=== PATIENT | male | born 1985 | race Caucasian/White ===

== ENCOUNTER 2019-08-18 13:44 | Emergency (ER) | payer SELFPAY ==
--- NOTE | 2019-08-18 16:19 | CR ---
Right foot: 3 views of the right foot were obtained. Comparison: No prior foot exam. Slight bunion deformity is noted. No fracture, dislocation or other bony abnormality is seen. Impression: 1. Slight bunion deformity. 2. Right foot study is otherwise unremarkable. Diagnostic code #2 Study was dictated in [place] Standard Time
--- NOTE | 2019-08-18 16:28 | EDM.PDOC ---
ED HPI GENERAL MEDICAL PROBLEM - General Chief Complaint: Lower Extremity Injury/Pain Stated Complaint: HURT RIGHT FOOT Time Seen by Provider: 08/18/19 16:28 Source of Information: Reports: Patient History Limitations: Reports: No Limitations - History of Present Illness INITIAL COMMENTS - FREE TEXT/NARRATIVE: HISTORY AND PHYSICAL: History of present illness: Patient is a 34-year-old male presents the ED with concern of right fifth toe injury. Patient states that he dropped 180 pound piece of equipment on his toe this morning. He states that he has been walking on it without any difficulty and has mild discomfort. He denies proximal ankle or other injury no other complaints at this time. Review of systems: As per history of present illness and below otherwise all systems reviewed and negative. Past medical history: As per history of present illness and as reviewed below otherwise noncontributory. Surgical history: As per history of present illness and as reviewed below otherwise noncontributory. Social history: No reported history of drug or alcohol abuse. Family history: As per history of present illness and as reviewed below otherwise noncontributory. Physical exam: General: Patient sitting comfortably in no acute distress and nontoxic appearing HEENT: Atraumatic, normocephalic, pupils reactive, negative for conjunctival pallor or scleral icterus, mucous membranes moist, throat clear, neck supple, nontender, trachea midline. No meningeal signs. Lungs: Clear to auscultation, breath sounds equal bilaterally, chest nontender. Heart: S1S2, regular, negative for clicks, rubs, or overt murmur. Abdomen: Soft, nondistended, nontender. Negative for masses or hepatosplenomegaly. Negative for costovertebral tenderness. No rigidity, rebound , guarding. Pelvis: Stable nontender. Genitourinary: Deferred. Rectal: Deferred. Extremities: Ecchymosis to the right fifth toe without any swelling or deformity. Skin is intact. Negative for cords or calf pain. Neurovascular unremarkable. Neuro: Awake, alert, oriented. Cranial nerves II through XII unremarkable. Cerebellum unremarkable. Motor and sensory unremarkable throughout. Exam nonfocal. Notes: Diagnostics: X-ray right foot Therapeutics: None Prescriptions: None Impression: Right toe injury Plan: 1. Ice, elevate, and motrin or tylenol as needed 2. Follow up with fisher pound net or trap, please call the number provided to schedule an appointment 3. Return to ED as needed as discussed Definitive disposition and diagnosis as appropriate pending reevaluation and review of above. right foot Pain Score (Numeric/FACES): 8 - Related Data Allergies Allergy/AdvReac Type Severity Reaction Status Date / Time No Known Allergies Allergy Verified 08/18/19 15:17 Home Meds: Home Meds . [No Known Home Meds] 08/18/19 [History] Past Medical History Other Musculoskeletal History: left wrist surgery. right knee surgery. right femur surgery. jaw surgery - Past Surgical History GI Surgical History: Reports: Appendectomy Social & Family History - Family History Family Medical History: Noncontributory - Tobacco Use Smoking Status *Q: Current Every Day Smoker Years of Tobacco use: 10 Packs/Tins Daily: 1 - Recreational Drug Use Recreational Drug Use: No Review of Systems - Review of Systems Review Of Systems: Comprehensive ROS is negative, except as noted in HPI. ED EXAM, GENERAL - Physical Exam Exam: See Below (see dictation) Course - Vital Signs Last Recorded V/S: Last Vital Signs Temp 96.4 F L 08/18/19 15:17 Pulse 78 08/18/19 15:17 Resp 16 08/18/19 15:17 BP 141/81 H 08/18/19 15:17 Pulse Ox 98 08/18/19 15:17 Departure - Departure Time of Disposition: 16:31 Disposition: Home, Self-Care 01 Condition: Good Clinical Impression: Injury of right toe - Discharge Information Instructions: Contusion, Musculoskeletal Pain Referrals: PCP,None [Primary Care Provider] - Forms: ED Department Discharge Additional Instructions: The following information is given to patients seen in the emergency department who are being discharged to home. This information is to outline your options for follow-up care. We provide all patients seen in our emergency department with a follow-up referral. The need for follow-up, as well as the timing and circumstances, are variable depending upon the specifics of your emergency department visit. If you don't have a primary care physician on staff, we will provide you with a referral. We always advise you to contact your personal physician following an emergency department visit to inform them of the circumstance of the visit and for follow-up with them and/or the need for any referrals to a consulting specialist. The emergency department will also refer you to a specialist when appropriate. This referral assures that you have the opportunity for follow-up care with a specialist. All of these measure are taken in an effort to provide you with optimal care, which includes your follow-up. Under all circumstances we always encourage you to contact your private physician who remains a resource for coordinating your care. When calling for follow-up care, please make the office aware that this follow-up is from your recent emergency room visit. If for any reason you are refused follow-up, please contact the [facility] Emergency Department at and asked to speak to the emergency department charge nurse. [facility] [address] [place] [address] [facility] [address] [place] [id number] [facility] [address] [place] [id number] 1. Ice, elevate, and motrin or tylenol as needed 2. Follow up with fisher pound net or trap, please call the number provided to schedule an appointment 3. Return to ED as needed as discussed Sepsis Event Note - Evaluation Sepsis Screening Result: No Definite Risk - Focused Exam Vital Signs: Vital Signs Temp Pulse Resp BP Pulse Ox 08/18/19 15:17 96.4 F L 78 16 141/81 H 98 Date Exam was Performed: 08/18/19 Time Exam was Performed: 17:04
== END 2019-08-18 16:37 | disposition home or self-care (01) ==
LOC: MW.ED 13:44
DX: S90.121A Contusion of right lesser toe(s) without damage to nail, initial encounter (principal); F17.210 Nicotine dependence, cigarettes, uncomplicated; W20.8XXA Other cause of strike by thrown, projected or falling object, initial encounter
CPT/HCPCS: 73630-26-RT; 73630-RT; 99282; 99283-25

== ENCOUNTER 2019-09-21 17:12 | Emergency (ER) | payer OTHER ==
--- NOTE | 2019-09-21 17:43 | EDM.PDOC ---
ED HPI GENERAL MEDICAL PROBLEM - General Chief Complaint: ENT Problem Stated Complaint: RIGHT EAR PROBLEM Time Seen by Provider: 09/21/19 17:18 Source of Information: Reports: Patient History Limitations: Reports: No Limitations - History of Present Illness INITIAL COMMENTS - FREE TEXT/NARRATIVE: HISTORY AND PHYSICAL: History of present illness: And is a 34-year-old male who presents to the emergency room with complaints of right ear pain. He states prior to arrival he was working on a tire when it blew up resulting in a loud noise. He put his finger in his ear and had noticed some blood on the tip of his finger. Since the incident he has had muffled hearing on the right side. There was no loss of consciousness or actual physical blow to his head. He states he is unsure if he was having any ear pain prior to that but is now noticeable since the incident. Patient denies any fever, chills, headache, change in vision, syncope or near syncope. Denies any chest pain, back pain, shortness of breath or cough. Denies any GI or symptoms. Patient has been eating and drinking appropriately. Review of systems: As per history of present illness and below otherwise all systems reviewed and negative. Past medical history: As per history of present illness and as reviewed below otherwise noncontributory. Surgical history: As per history of present illness and as reviewed below otherwise noncontributory. Social history: See social history for further information Family history: As per history of present illness and as reviewed below otherwise noncontributory. Physical exam: General: Well developed and well nourished 34-year-old male. Alert and oriented. Nontoxic-appearing and in no acute distress. HEENT: Nontender, normocephalic, pupils equal and reactive bilaterally, negative for conjunctival pallor or scleral icterus, mucous membranes moist, TMs normal bilaterally, the right ear canal is red and tenderness with pulling back on the ear, throat clear, neck supple, nontender, trachea midline. No drooling or trismus noted. No meningeal signs. No hot potato voice noted. Lungs: Clear to auscultation, breath sounds equal bilaterally, chest nontender. Heart: S1S2, regular rate and rhythm without overt murmur Abdomen: Soft, nondistended, nontender. Skin: Intact, warm, dry. No lesions or rashes noted. Extremities: Atraumatic, moves all extremities per self without difficulty or deficits. Neurovascular unremarkable. Neuro: Awake, alert, oriented. Cranial nerves II through XII unremarkable. Cerebellum unremarkable. Motor and sensory unremarkable throughout. Exam nonfocal. Notes: We discussed signs and symptoms that would prompt him to return to the emergency room. I would like to have him continue to monitor the hearing in the right ear and follow-up if this does not improve or in fact worsens. Medication and supportive care measures were reviewed and discussed. Voices understanding and is agreeable to plan of care. Denies any further questions or concerns at this time. Diagnostics: None Therapeutics: Cipro Gtts Prescription: None Impression: Otitis externa Plan: 1. Use the eardrops 4 drops in the right ear twice daily over the next 5 days. Avoid placing anything in the ear cannal. 2. Alternate Tylenol and/or ibuprofen as needed. 3. Follow up with Return to the ED as needed and as discussed. Definitive disposition and diagnosis as appropriate pending reevaluation and review of above. - Related Data Allergies Allergy/AdvReac Type Severity Reaction Status Date / Time No Known Allergies Allergy Verified 09/21/19 17:36 Home Meds: Home Meds Ciprofloxacin/Hydrocortisone [Cipro HC Otic Susp] 4 drop OT BID #1 bottle [Rx] Past Medical History Other Musculoskeletal History: left wrist surgery. right knee surgery. right femur surgery. jaw surgery - Past Surgical History GI Surgical History: Reports: Appendectomy Social & Family History - Family History Family Medical History: Noncontributory ED ROS ENT - Review of Systems Review Of Systems: Comprehensive ROS is negative, except as noted in HPI. ED EXAM, ENT - Physical Exam Exam: See Below (See dictation) Departure - Departure Time of Disposition: 17:42 Disposition: Home, Self-Care 01 Clinical Impression: Otitis externa Qualifiers: Otitis externa type: unspecified type Chronicity: acute Laterality: right Qualified Code(s): H60.501 - Unspecified acute noninfective otitis externa, right ear - Discharge Information Prescriptions: Ciprofloxacin/Hydrocortisone [Cipro HC Otic Susp] 4 drop OT BID #1 bottle Referrals: PCP,None [Primary Care Provider] - Additional Instructions: The following information is given to patients seen in the emergency department who are being discharged to home. This information is to outline your options for follow-up care. We provide all patients seen in our emergency department with a follow-up referral. The need for follow-up, as well as the timing and circumstances, are variable depending upon the specifics of your emergency department visit. If you don't have a primary care physician on staff, we will provide you with a referral. We always advise you to contact your personal physician following an emergency department visit to inform them of the circumstance of the visit and for follow-up with them and/or the need for any referrals to a consulting specialist. The emergency department will also refer you to a specialist when appropriate. This referral assures that you have the opportunity for follow-up care with a specialist. All of these measure are taken in an effort to provide you with optimal care, which includes your follow-up. Under all circumstances we always encourage you to contact your private physician who remains a resource for coordinating your care. When calling for follow-up care, please make the office aware that this follow-up is from your recent emergency room visit. If for any reason you are refused follow-up, please contact the [facility] Emergency Department at and asked to speak to the emergency department charge nurse. [facility] [address] [place] [address] [address] 1. Use the eardrops 4 drops in the right ear twice daily over the next 5 days. Avoid placing anything in the ear cannal. 2. Alternate Tylenol and/or ibuprofen as needed. 3. Follow up with Return to the ED as needed and as discussed.
[2019-09-21] MEDS ORDERED: Ciprofloxacin/Hydrocortisone Otic Susp 10 ML Bottle EARLF SCH ×2 (18:00)
== END 2019-09-21 17:50 | disposition home or self-care (01) ==
LOC: MW.ED 17:12
DX: H60.501 Unspecified acute noninfective otitis externa, right ear (principal)
CPT/HCPCS: 99282